=== PATIENT | female | born 2005 | race Caucasian/White ===

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

== ENCOUNTER 2024-07-01 10:10 | Inpatient (IN) | payer MEDICAID, OTHER ==
--- NOTE | 2024-07-01 11:55 | ED ---
General Adult HPI - General Chief complaint: Psychiatric Symptoms Stated complaint: MH Evaluation per Generator Man Time Seen by Provider: 07/01/24 10:31 Source: patient, RN notes reviewed Mode of arrival: ambulatory Limitations: no limitations - History of Present Illness Initial comments: 19-year-old female presents emergency department with mother for mental health evaluation. Patient's field artillery officer recommended that she come to the emergency department for mental health evaluation. She is currently being treated for depression and anxiety and has recently had medication changes. Patient reports feeling like she does not want to get out of bed. She denies suicidal ideation, homicidal ideation, hallucinations. - Related Data Previous Rx's Medication Instructions Recorded Desvenlafaxine [Pristiq ER] 100 mg PO HS 15 Days #15 tab 07/04/24 Nicotine 14Mg/24Hr Patch [Habitrol] 1 patch TRANSDERM DAILY patch 07/04/24 Nicotine Gum (Polacrilex) 2 mg BUCCAL Q4HR PRN pieceofgum 07/04/24 [Nicorette] Pramipexole [Mirapex] 0.125 mg PO HS 15 Days #15 tab 07/04/24 QUEtiapine [SEROquel] 100 mg PO HS 15 Days #15 tab 07/04/24 cloNIDine HCL [Catapres] 0.2 mg PO HS 15 Days #15 tab 07/04/24 hydrOXYzine HCL [Atarax] 25 mg PO Q6HR PRN 15 Days #15 tab 07/04/24 Allergies Allergy/AdvReac Type Severity Reaction Status Date / Time No Known Allergies Allergy Verified 07/01/24 11:07 Review of Systems ROS Statement: Those systems with pertinent positive or pertinent negative responses have been documented in the HPI. ROS Other: All systems not noted in ROS Statement are negative. Past Medical History Past Medical History: No Reported History Additional Past Medical History / Comment(s): BPD History of Any Multi-Drug Resistant Organisms: None Reported Past Surgical History: No Surgical Hx Reported Past Psychological History: Anxiety, Bipolar, Depression Smoking Status: Vaper Past Alcohol Use History: Occasional Past Drug Use History: Marijuana General Exam Limitations: no limitations General appearance: alert, in no apparent distress Head exam: Present: atraumatic, normocephalic, normal inspection Eye exam: Present: normal appearance, PERRL, EOMI. Absent: scleral icterus, conjunctival injection, periorbital swelling Respiratory exam: Present: normal lung sounds bilaterally. Absent: respiratory distress, wheezes, rales, rhonchi, stridor Cardiovascular Exam: Present: regular rate, normal rhythm, normal heart sounds. Absent: systolic murmur, diastolic murmur, rubs, gallop, clicks GI/Abdominal exam: Present: soft. Absent: distended, tenderness, guarding, rebound, rigid Extremities exam: Present: normal inspection, full ROM, normal capillary refill. Absent: tenderness, pedal edema, joint swelling, calf tenderness Neurological exam: Present: alert, oriented X3 Psychiatric exam: Present: normal affect, normal mood Skin exam: Present: warm, dry, intact, normal color. Absent: rash Course Vital Signs 07/01/24 12:00 Temperature 98.3 F Pulse Rate 103 H Respiratory 18 Rate Blood Pressure 117/73 O2 Sat by Pulse 99 Oximetry Medical Decision Making - Medical Decision Making Was pt. sent in by a medical professional or institution (, PA, METAL BONDING WORKER, urgent care, hospital, or residential...) When possible be specific @ -No Did you speak to anyone other than the patient for history (EMS, parent, family, police, friend...)? What history was obtained from this source @ -No Did you review nursing and triage notes (agree or disagree)? Why? @ -I reviewed and agree with nursing and triage notes Were old charts reviewed (outside hosp., previous admission, EMS record, old EKG, old radiological studies, urgent care reports/EKG's, residential records)? Report findings @ -No old charts were reviewed Differential Diagnosis (chest pain, altered mental status, abdominal pain women, abdominal pain men, vaginal bleeding, weakness, fever, dyspnea, syncope, headache, dizziness, GI bleed, back pain, seizure, CVA, palpatations, mental health, musculoskeletal)? @ -Differential Mental Health Depression, anxiety, bipolar, psychosis, schizophrenia, borderline personality, situational depression, adjustment disorder, behavioral disorder, brain tumor, malingering, substance abuse, encephalopathy, medication reaction, dementia, hypothyroidism, degenerative neurologic disorder, lupus.... This is not meant to be all-inclusive list EKG interpreted by me (3pts min.). @ -None X-rays interpreted by me (1pt min.). @ -None done CT interpreted by me (1pt min.). @ -None done U/S interpreted by me (1pt. min.). @ -None done What testing was considered but not performed or refused? (CT, X-rays, U/S, labs)? Why? @ -None What meds were considered but not given or refused? Why? @ -None Did you discuss the management of the patient with other professionals (professionals i.e. , PA, METAL BONDING WORKER, lab, RT, psych nurse, delinquency prevention social worker, cloth shrinking tester, teacher, amphibious operations officer, cyanide case hardener)? Give summary @ -Case discussed with EPS, inpatient treatment is recommended Was smoking cessation discussed for >3mins.? @ -No Was critical care preformed (if so, how long)? @ -No Were there social determinants of health that impacted care today? How? (Ho melessness, low income, unemployed, alcoholism, drug addiction, transportation, low edu. Level, literacy, decrease access to med. care, [facility], rehab)? @ -No Was there de-escalation of care discussed even if they declined (Discuss DNR or withdrawal of care, Hospice)? DNR status @ -No What co-morbidities impacted this encounter? (DM, HTN, Smoking, COPD, CAD, Cancer, CVA, ARF, Chemo, Hep., AIDS, mental health diagnosis, sleep apnea, morbid obesity)? @ -None Was patient admitted / discharged? Hospital course, mention meds given and route, prescriptions, significant lab abnormalities, going to OR and other pertinent info. @ -Admitted to psychiatric unit. Patient presented to the emergency department as recommended by her field artillery officer. Patient reports feeling down and depressed. She denies any suicidal ideation to me. Denies any physical complaints at this time. Patient was medically cleared and evaluated by EPS. I discussed the case with EPS and inpatient treatment was recommended. Undiagnosed new problem with uncertain prognosis? @ -No Drug Therapy requiring intensive monitoring for toxicity (Heparin, Nitro, Insulin, Cardizem)? @ -No Were any procedures done? @ -No Diagnosis/symptom? @ -Depression Acute, or Chronic, or Acute on Chronic? @ -Acute Uncomplicated (without systemic symptoms) or Complicated (systemic symptoms)? @ -Complicated Side effects of treatment? @ -No Exacerbation, Progression, or Severe Exacerbation? @ -No Poses a threat to life or bodily function? How? (Chest pain, USA, CO, pneumonia, PE, COPD, DKA, ARF, appy, cholecystitis, CVA, Diverticulitis, Homicidal, Suicidal, threat to staff... and all critical care pts) @ -No - Lab Data Lab Results 07/01/24 07/01/24 07/01/24 Range/Units 12:09 12:09 13:33 Urine HCG, Qual Not Detected (Not Detectd) Urine Opiates Screen Not Detected (NotDetected) Ur Oxycodone Screen Not Detected (NotDetected) Urine Methadone Screen Not Detected (NotDetected) Ur Barbiturates Screen Not Detected (NotDetected) U Tricyclic Antidepress Detected H (NotDetected) Ur Phencyclidine Scrn Not Detected (NotDetected) Ur Amphetamines Screen Not Detected (NotDetected) U Methamphetamines Scrn Not Detected (NotDetected) U Benzodiazepines Scrn Not Detected (NotDetected) Urine Cocaine Screen Not Detected (NotDetected) U Marijuana (THC) Screen Detected H (NotDetected) SARS-CoV-2 (PCR) Not Detected (Not Detectd) Disposition Clinical Impression: Depression Disposition: ADMITTED IP TO THIS HOSP Is patient prescribed a controlled substance at d/c from ED?: No
[2024-07-01 12:36] LABS: Amphetamine Screen,Urine Not Detected (NotDetected); Barbiturate Screen,Urine Not Detected (NotDetected); Benzodiazepines Screen,Urine Not Detected (NotDetected); Cocaine Screen,Urine Not Detected (NotDetected); Methadone Screen, Urine Not Detected (NotDetected); Opiate Screen,Urine Not Detected (NotDetected); Oxycodone Screen, Urine Not Detected (NotDetected); Phencyclidine Screen,Urine Not Detected (NotDetected); Tricyclic Antidepressant,Urine Detected (NotDetected); Urn Cannabinoid Scrn Detected (NotDetected)
[2024-07-01] MEDS ORDERED: MAG HYDROX/AL HYDROX/SIMETH 355 ML BOTTLE PO PRN (14:50)
[2024-07-01] MEDS ORDERED: OLANZapine 10 MG TAB PO PRN (14:50)
[2024-07-01] MEDS ORDERED: IBUPROFEN 600 MG TAB PO PRN (14:50)
[2024-07-01] MEDS ORDERED: hydrOXYzine HCL 50 MG/ML 1 ML VIAL IM PRN (14:50)
[2024-07-01] MEDS ORDERED: MAGNESIUM HYDROXIDE 2,400 MG/30 ML CUP PO PRN (14:50)
[2024-07-01] MEDS ORDERED: ACETAMINOPHEN TAB 325 MG TAB PO PRN (14:50)
[2024-07-01] MEDS ORDERED: OLANZapine 10 MG VIAL IM PRN (14:50)
[2024-07-01 16:10] VITALS: RESP 16
[2024-07-01] MEDS: cloNIDine HCL 0.2 MG TAB PO SCH (20:32)
[2024-07-01] MEDS: QUEtiapine 25 MG TAB PO SCH (20:32)
[2024-07-01] MEDS: NICOTINE GUM (POLACRILEX) 2 MG GUM BUCCAL PRN (20:34)
[2024-07-02] MEDS: DESVENLAFAXINE SUCCINATE 50 MG TAB.ER.24H PO SCH (08:42)
[2024-07-02] MEDS: NICOTINE 14MG/24HR PATCH TRANSDERM SCH (08:42)
[2024-07-02] MEDS: hydrOXYzine HCL 25 MG TAB PO PRN (13:45)
--- NOTE | 2024-07-02 14:27 | P.HP ---
Psychiatric H&P - . H&P Date: 07/02/24 History & Physical: Allergies Allergy/AdvReac Type Severity Reaction Status Date / Time No Known Allergies Allergy Verified 07/01/24 11:07 Vital Signs Temp 97.9 F 07/02/24 06:40 Pulse 92 07/02/24 06:40 Resp 16 07/02/24 06:40 BP 108/68 07/02/24 06:40 Pulse Ox 99 07/02/24 06:40 FiO2 Intake & Output 07/01/24 07/02/24 07/02/24 18:59 06:59 18:59 Weight 77.6 kg Laboratory Last Values Urine HCG, Qual Not Detected (Not Detectd) 07/01/24 12:09 Urine Opiates Screen Not Detected (NotDetected) 07/01/24 12:09 Ur Oxycodone Screen Not Detected (NotDetected) 07/01/24 12:09 Urine Methadone Screen Not Detected (NotDetected) 07/01/24 12:09 Ur Barbiturates Screen Not Detected (NotDetected) 07/01/24 12:09 U Tricyclic Antidepress Detected (NotDetected) H 07/01/24 12:09 Ur Phencyclidine Scrn Not Detected (NotDetected) 07/01/24 12:09 Ur Amphetamines Screen Not Detected (NotDetected) 07/01/24 12:09 U Methamphetamines Scrn Not Detected (NotDetected) 07/01/24 12:09 U Benzodiazepines Scrn Not Detected (NotDetected) 07/01/24 12:09 Urine Cocaine Screen Not Detected (NotDetected) 07/01/24 12:09 U Marijuana (THC) Screen Detected (NotDetected) H 07/01/24 12:09 SARS-CoV-2 (PCR) Not Detected (Not Detectd) 07/01/24 13:33 07/02/24 14:18 IDENTIFYING DATA: Patient is a 19-year-old female, currently living at home with parents, unemployed CHIEF COMPLAINT: SI HPI: Patient presented to the hospital with mental health concerns. EPS note revealed, "Patient arrived at ER due to community development officer recommending patient assessment, patient states he made this recommendation because she was "not feeling well", patient refused to elaborate at this time. Verbalizes she currently has outpatient mental health treatment through [facility]. Patient verbalizes she last spoke to her psychiatrist today, and has an appointment on (07/03/2024). Patient denies previous inpatient psychiatric hospitalizations. Patient verbalizes feeling down and depressed. Patient reports inability to sleep and attend to hygiene due to lack of motivation and energy. Patient states she sleeps approx 2 hours per night with difficulty falling asleep and staying asleep due to nightmares. Patient verbalizes feeling helpless and hopeless. Patient verbalizes increased appetite, and overeating. Patient denies suicidal ideation, denies history of suicide attempts or self harm. Patient denies homicial ideations or hallucinations. Patient verbalizes mild paranoia at times, feeling on edge, and like people are watching her or talking about her. Patient verbalizes medication management at home including, pristiq, atarax, seroquel, and catapres. Patient verbalizes compliance with medications but feels like they are not working anymore. Patient presents during assessment as guarded and tearful. Patient reluctant to answer questions and difficult to get answers or long pauses before responding to assessment questions. Patient verbalize history of substance abuse but denies any history of substance abuse treatment. Patient states history of alcohol use, methamphetamines, cocaine, and marijuana. Patient UDS+ Marijuana and Tricyclic antidepressants. Petition was completed on patient in ER by patient mother related to lack of attending basic physical needs, minimizing symptoms and not attending her counselling appointments, and expressing suicidal ideations." Patient seen and evaluated on the unit and was agreeable with speaking to mortgage or loan underwriter in office. She states her community development officer ultimately sent her here after she became more depressed after recent positive UDS for meth. She states this was positive last month she has not used meth since but does admit to using cannabis daily which she finds helpful for anxiety and appetite. She states for the past 2 months ever since being released from [facility] for OWI she has been experiencing depressive symptoms including sleep difficulties, not attending to her ADLs, low energy and anhedonia. She states her home environment is a trigger for her as prior to going to [facility] she was living independently but now has to live with her parents. She reports generalized anxiety described as being a worrier, along with racing thoughts, restlessness and feeling on edge. She reports questionable auditory and visual hallucinations described as hearing someone call her voice and seeing things out of the corner of her eye. Patient does report suicidal ideations however did mention this is more passive in nature as she adamantly denied any plan or intent for this. Patient denies any homicidal ideations intent or plan. Patient denies any flight of ideas racing thoughts and increased in goal directed behavior. Patient admits to using cannabis and vaping daily. PAST PSYCHIATRIC HISTORY: Patient has a history of depression, anxiety, cannabis use disorder, alcohol use disorder, cocaine use disorder, methamphetamine use disorder. Patient is currently prescribed Pristiq 100 mg daily, Seroquel 25 mg at bedtime, clonidine 0.2 mg at bedtime, Atarax 25 mg as needed. Patient denies any previous psychiatric hospitalizations. She sees Mari Rico with [facility] patient denies any history of suicide attempts in the past. PMH: as per ER note ALLERGIES: as per EMR SUBSTANCE USE HISTORY: As per HPI FAMILY PSYCHIATRIC/SUBSTANCE USE HISTORY: Denies SOCIAL HISTORY: Patient is single, has no children and is currently living at home with her parents. She completed high school. She spent 30 days in [facility] for OWI is currently on probation for this. MENTAL STATUS EXAM: General Appearance: Patient appears to be stated age is alert, directable, and attempts to cooperate. Patient appears to have good hygiene and grooming. He is dressed in all pink clothing Behavior: Patient is seated without any agitated behavior. Speech: Patient's speech is fluent and nonpressured. Mood/Affect: Patient reports their mood is depressed, affect is congruent and constricted. Suicidality/Homicidality: Patient denies having any homicidal ideation intent or plan. Reports suicidal ideations, no intent or plan Perceptions: Patient denies any visual hallucinations and denies any auditory hallucinations Though content/process: There is no evidence of any delusional thought content and thought process is linear and logical. Memory and concentration: AOX3, grossly intact for the purposes of this session. Can spell "WORLD" backwards Judgment and insight: Fair STRENGTHS/WEAKNESSES: strength is that patient is resilient and has family support. Weakness is that patient has poor judgment, uses substances and is impulsive INTELLECT: Average IMPRESSIONS: Major depressive disorder, recurrent, moderate Generalized anxiety disorder Cluster B traits Methamphetamine use disorder Cannabis use disorder Nicotine dependence PLAN: -Patient is admitted under voluntary status to [facility] for stabilization of psychiatric symptoms and safety. Patient has signed adult voluntary form and medication consent and is placed in patient's chart. -Medications : Increase Seroquel to 50 mg at bedtime for mood stabilization and continue Pristiq 100 mg daily for depression, clonidine 0.2 mg at bedtime for anxiety -Atarax and Zyprexa PRN for agitation/aggression -Patient was counselled on substance abuse and desired to cut back on use-Will offer patient subtance use rehab -Patient was informed of the risks, benefits and side effects of the medication and patient verbally consented to taking the medications. Patient signed med consent form and was placed in chart. -Internal Medicine consult to perform medical evaluation and physical. -NRT -nicotine patch -SW on board for discharge planning. Encourage patient to participate in groups to work on coping skills. Anticipate discharge back home with mom on Sunday07/02/24 14:19
[2024-07-02] MEDS: QUEtiapine 50 MG TAB PO SCH (21:07)
--- NOTE | 2024-07-03 10:48 | P.PN ---
Progress Note - Text Progress Note Date: 07/03/24 Interval History: Patient was seen in bed and was directable and agreeable to speak with com writer in the office. She reports improvements in sleep however still reporting difficulty staying asleep. She states her anxiety is mild today and that as needed hydroxyzine has been effective for this. She does report restless legs overnight that does impact her sleep. She states speaking to her mom yesterday and that she will be picking her up tomorrow when discharged. She states her supervisor dog license officer and mother both wants her to go to a long-term facility given her recent relapse however she is not on board with this as she feels as though she will relapse anyway the moment she is discharged from that facility. She appears precontemplative and is not interested in rehab at this time. At this time patient denies any suicidal or homicidal ideations, intent or plan. Patient denies any auditory, visual hallucinations and denies any paranoia or delusions. Patient denies any side effects from the medications and has been compliant with meds. Mental Status Exam: General Appearance: Patient appears to be stated age is alert, directable, and cooperative. She is wearing an all pink outfit Behavior: Patient is calmly seated without any agitated behavior. Speech: Patient's speech is fluent and nonpressured. Mood/Affect: Mood is improving mildly, affect is congruent and constricted. Suicidality/Homicidality: Patient denies having any suicidal or homicidal ideation intent or plan. Perceptions: Patient denies any visual hallucinations and denies any auditory hallucinations Though content/process: There is no evidence of any delusional thought content and thought process is linear and goal-directed. Memory and concentration: AOX3, grossly intact for the purposes of this session Judgment and insight: Improving mildly Assessment Depressive disorder, recurrent, moderate Generalized anxiety disorder Cluster B traits Methamphetamine use disorder Cannabis use disorder Nicotine dependence Plan: -Patient continues to meet criteria for inpatient psychiatric admission for symptom stabilization and safety. Patient has signed adult voluntary form and medication consent and was placed in patient's chart. -Medications: Increase Seroquel to 100 mg at bedtime for mood stabilization, start Mirapex 0.125 mg at bedtime for RLS and continue Pristiq 100 mg daily for depression, clonidine 0.2 mg at bedtime for anxiety -When necessary Atarax and Zyprexa for agitation/aggression. -Labs: Reviewed -NRT -nicotine patch -SW on board for discharge planning. Encouraged the patient to participate in milieu. Anticipate discharge back home with mom tomorrow
[2024-07-03] MEDS: PRAMIPEXOLE 0.125 MG TAB PO SCH (20:14)
[2024-07-03] MEDS: QUEtiapine 100 MG TAB PO SCH (20:14)
[2024-07-04 07:04] VITALS: BP 98/55; PULSE 76; TEMP 98.7
--- NOTE | 2024-07-04 12:08 | P.DS ---
Providers Date of admission: 07/01/24 14:44 Expected date of discharge: 07/04/24 Attending physician: Teena Loyd MD Consults: 07/01/24 14:50 Consult Physician Routine Consulting Provider: Garfield Garcia Consult Reason/Comments: History and Physical Do you want consulting provider notified?: Yes Primary care physician: Pita Ansari - Discharge Diagnosis(es) (1) Major depressive disorder, recurrent Status: Acute Priority: High (2) Generalized anxiety disorder Status: Acute Priority: Medium (3) Cluster B personality disorder Status: Acute Priority: Medium (4) Methamphetamine abuse Status: Chronic Priority: Low (5) Cannabis use disorder Status: Acute Priority: Low (6) Nicotine dependence Status: Acute Priority: Low Hospital Course: Admission HPI: Admission note was completed by telegraphic typewriter operator chief "Patient presented to the hospital with mental health concerns. EPS note revealed, "Patient arrived at ER due to patient safety officer recommending patient assessment, patient states he made this recommendation because she was "not feeling well", patient refused to elaborate at this time. Verbalizes she currently has outpatient mental health treatment [facility]. Patient verbalizes she last spoke to her psychiatrist today, and has an appointment on (07/03/2024). Patient denies previous inpatient psychiatric hospitalizations. Patient verbalizes feeling down and depressed. Patient reports inability to sleep and attend to hygiene due to lack of motivation and energy. Patient states she sleeps approx 2 hours per night with difficulty falling asleep and staying asleep due to nightmares. Patient verbalizes feeling helpless and hopeless. Patient verbalizes increased appetite, and overeating. Patient denies suicidal ideation, denies history of suicide attempts or self harm. Patient denies homicial ideations or hallucinations. Patient verbalizes mild paranoia at times, feeling on edge, and like people are watching her or talking about her. Patient verbalizes medication management at home including, pristiq, atarax, seroquel, and catapres. Patient verbalizes compliance with medications but feels like they are not working anymore. Patient presents during assessment as guarded and tearful. Patient reluctant to answer questions and difficult to get answers or long pauses before responding to assessment questions. Patient verbalize history of substance abuse but denies any history of substance abuse treatment. Patient states history of alcohol use, methamphetamines, cocaine, and marijuana. Patient UDS+ Marijuana and Tricyclic antidepressants. Petition was completed on patient in ER by patient mother related to lack of attending basic physical needs, minimizing symptoms and not attending her counselling appointments, and expressing suicidal ideations." Patient seen and evaluated on the unit and was agreeable with speaking to telegraphic typewriter operator chief in office. She states her patient safety officer ultimately sent her here after she became more depressed after recent positive UDS for meth. She states this was positive last month she has not used meth since but does admit to using cannabis daily which she finds helpful for anxiety and appetite. She states for the past 2 months ever since being released from [facility] for [facility]I she has been experiencing depressive symptoms including sleep difficulties, not attending to her ADLs, low energy and anhedonia. She states her home environment is a trigger for her as prior to going to intermediate she was living independently but now has to live with her parents. She reports generalized anxiety described as being a worrier, along with racing thoughts, restlessness and feeling on edge. She reports questionable auditory and visual hallucinations described as hearing someone call her voice and seeing things out of the corner of her eye. Patient does report suicidal ideations however did mention this is more passive in nature as she adamantly denied any plan or intent for this. Patient denies any homicidal ideations intent or plan. Patient denies any flight of ideas racing thoughts and increased in goal directed behavior. Patient admits to using cannabis and vaping daily." Hospital course: Upon admission to the unit patient was directable and agreeable to commence treatment and signed adult voluntary form.. Patient got along well with other patients on the unit and followed unit protocol. Patient was compliant with the medications and denied any side effects throughout hospital course. Patient was started on Seroquel and this was increased to 100 mg at bedtime for mood stabili zation, Mirapex 0.125 mg at bedtime for RLS, Pristiq continued at 100 mg daily for depression, clonidine continued at 0.2 mg at bedtime for anxiety. Patient spoke of her stressors and engaged in therapy both group and individual. Patient was also seen by medical team for history and physical exam. Throughout the course of the hospitalization patient gradually improved with regards to mood, anxiety, sleep and returned back to their baseline level of functioning. On the day of discharge patient denied any suicidal or homicidal ideations intent or plan denied any auditory or visual hallucinations. The patient denied any access to guns or weapons. Patient denied any paranoia and did not endorse any delusions. Patient does have a significant history of substance abuse and was counseled on abstaining from all substances including alcohol and marijuana. Patient was offered however declined inpatient substance-abuse rehab. Patient was also counseled on the medications and need for regular compliance and was encouraged to follow-up with their outpatient appointment for mental health and also for primary care. Prior to discharge a family meeting will be arranged by executive secretary social welfare to answer any questions and ensure safety upon discharge incuding making sure that guns/weapons are either removed from the home or locked away. She is to be discharged back home with mother with [facility] follow-up. Mental status exam: General Appearance: Patient appears to be stated age is alert, pleasant, and cooperative. Patient is in no acute distress and has fair hygiene and grooming Behavior: Patient is calmly seated without any agitated behavior. Speech: Patient's speech is fluent and nonpressured. Mood/Affect: Patient reports their mood is "good", affect is congruent and euthymic. Suicidality/Homicidality: Patient denies having any suicidal or homicidal ideation intent or plan. Perceptions: Patient denies any auditory or visual hallucinations. Though content/process: There is no evidence of any delusional thought content and thought process is linear and goal-directed. Memory and concentration: AOX3, grossly intact for the purposes of this session. Can spell "WORLD" backwards correctly. Judgment and insight: Fair Impression: Major depressive disorder, recurrent, moderate Generalized anxiety disorder Cluster B traits Methamphetamine abuse Cannabis use disorder Nicotine dependence Plan: -Continue with discharge today as patient has improved and stabilized psychiatrically and is not currently an imminent threat to themself and/or others. Patient will remain at chronically elevated risk for harm to self and/or others due to their impulsivity and substance abuse. -Continue medications: Seroquel 100 mg at bedtime, Mirapex 0.125 mg at bedtime, Pristiq 100 mg daily, clonidine 0.2 mg at bedtime -Patient was counseled on the need for medication compliance and appropriate follow-up at mental health and also primary care for medical issues. Patient verbalized understanding and agreed. -Social work to help coordinate patients discharge today arrange for and conduct family meeting to ensure safety upon discharge and answer any questions/concerns. also to ensure safe home environment that guns/weapons are either removed from the home or locked away. Social work also to arrange for patients follow up appointments with [facility] for psychiatric care along with follow up with primary care provider. -Patient counseled on abstaining from recreational drugs and marijuana and alcohol. Was informed/educated on the adverse effects on their physical and men omari health. Patient verbally agreed and understood. Patient was offered substance abuse treatment however declined at this time. -Patient was instructed to return to the hospital or seek immediate medical care if their psychiatric or medical symptoms do worsen or reoccur. Abnormal Labs 07/01/24 12:09 U Tricyclic Antidepress Detected H U Marijuana (THC) Screen Detected H Vital Signs Temp 98.7 F 07/04/24 07:03 Pulse 76 07/04/24 07:03 Resp 16 07/04/24 07:03 BP 98/55 07/04/24 07:03 Pulse Ox 99 07/04/24 07:03 FiO2 Allergies Allergy/AdvReac Type Severity Reaction Status Date / Time No Known Allergies Allergy Verified 07/01/24 11:07 Plan - Discharge Summary Discharge Rx Participant: No New Discharge Prescriptions: New Nicotine 14Mg/24Hr Patch [Habitrol] 1 patch TRANSDERM DAILY patch Pramipexole [Mirapex] 0.125 mg PO HS 15 Days #15 tab Nicotine Gum (Polacrilex) [Nicorette] 2 mg BUCCAL Q4HR PRN pieceofgum PRN Reason: Nicotine Cravings QUEtiapine [SEROquel] 100 mg PO HS 15 Days #15 tab hydrOXYzine HCL [Atarax] 25 mg PO Q6HR PRN 15 Days #15 tab PRN Reason: Anxiety Continue cloNIDine HCL [Catapres] 0.2 mg PO HS 15 Days #15 tab Changed Desvenlafaxine [Pristiq ER] 100 mg PO HS 15 Days #15 tab Discontinued hydrOXYzine HCL [Atarax] 25 mg PO BID PRN PRN Reason: Anxiety QUEtiapine [SEROquel] 25 mg PO HS Discharge Medication List Desvenlafaxine [Pristiq ER] 100 mg PO HS 15 Days #15 tab 07/04/24 [Rx] Nicotine 14Mg/24Hr Patch [Habitrol] 1 patch TRANSDERM DAILY patch 07/04/24 [Rx] Nicotine Gum (Polacrilex) [Nicorette] 2 mg BUCCAL Q4HR PRN pieceofgum 07/04/24 [Rx] Pramipexole [Mirapex] 0.125 mg PO HS 15 Days #15 tab 07/04/24 [Rx] QUEtiapine [SEROquel] 100 mg PO HS 15 Days #15 tab 07/04/24 [Rx] cloNIDine HCL [Catapres] 0.2 mg PO HS 15 Days #15 tab 07/04/24 [Rx] hydrOXYzine HCL [Atarax] 25 mg PO Q6HR PRN 15 Days #15 tab 07/04/24 [Rx] Follow up Appointment(s)/Referral(s): Julius Pina [Other] - 07/08/24 10:00 am (07/08 @ 10:00 with [place]) Pita Ansari DO [Primary Care Provider] - 1-2 days Patient Instructions/Handouts: How to Stop Smoking (DC), Depression (DC), Generalized Anxiety Disorder (ED) Activity/Diet/Wound Care/Special Instructions: [facility] Discharge Info Avoid the use of street drugs and alcohol. Take all medications as prescribed. When you are in need of refills on your medications, please contact your outpatient medical provider and/or outpatient psychiatrist. Please go to your scheduled outpatient appointments for aftercare treatment. If symptoms return or become worse, call the crisis line at or and/or visit the nearest emergency room for assistance. National Suicide and Crisis Lifeline - call or text 923. Discharge Disposition: HOME SELF-CARE
== END 2024-07-04 11:05 | disposition home or self-care (01) | DRG 751 ==
LOC: EC 10:10 → 3MHU 14:44
PROVIDERS: ADMIT Psychiatry & Neurology Psychiatry; ATTEND Psychiatry & Neurology Psychiatry
DX: F33.9 Major depressive disorder, recurrent, unspecified (principal); Z11.52 Encounter for screening for COVID-19; F12.10 Cannabis abuse, uncomplicated; F15.10 Other stimulant abuse, uncomplicated; F17.290 Nicotine dependence, other tobacco product, uncomplicated; F22 Delusional disorders; F41.1 Generalized anxiety disorder; F60.89 Other specific personality disorders; G25.81 Restless legs syndrome; G47.00 Insomnia, unspecified; R45.851 Suicidal ideations; Z65.3 Problems related to other legal circumstances; Z79.899 Other long term (current) drug therapy; Z71.41 Alcohol abuse counseling and surveillance of alcoholic; Z71.51 Drug abuse counseling and surveillance of drug abuser
CPT/HCPCS: 80306; 81025; 82075; 87635; 99285